=== PATIENT | male | born 1940 | race Caucasian/White ===

== ENCOUNTER 2018-06-17 06:48 | Day surgery (SDC) | payer MEDICARE, SELFPAY ==
--- NOTE | 2018-06-15 10:19 | ROE_ITS ---
Operative Note Pre-op diagnosis: Cataract, right eye, with poorly dilating pupil Post-op diagnosis: same Procedure: 1. Cataract extraction by phacoemulisification with intraocular lens implantation, right eye, with pupillary expansion device assistance Surgeon: Rey Emerson Anesthesia: MAC and local (sub-tenon's anesthetic infiltration) Estimated blood loss (mL): 0 Pathology: none sent Complications: None Patient was transported to: same day Patient's condition: stable Implants: Jin and Jin / [employer] Tecnis [id number] Indications: Painless, progressive decreased vision, right eye Procedure Description: CATARACT SURGERY OPERATIVE REPORT PREOPERATIVE DIAGNOSIS: 1. [] 2. Poorly dilating pupil, right eye POSTOPERATIVE DIAGNOSIS: Same OPERATION: Cataract extraction using phacoemulsification with posterior chamber intraocular lens implant, right eye. Pupillary dilation and iris stabilization using Malyugin Ring IOL: IOL Piston Maker/Model: Jin & Jin / BARBARA Tecnis [id number] IOL Power: [] diopters IOL Serial Number: [] Optic Diameter: [] mm Haptic/Overall Diameter: [] mm PHACO INFO: [email or web address] Vision System with OZil and Active Fluidics Cumulative Dispersed Energy (CDE): [] seconds SURGEON: Rey Emerson MD, TAMMI ANESTHESIA: Monitored Anesthesia Care (MAC), with local sub-tenon's anesthetic infiltration COMPLICATIONS: None SPECIMENS: None INDICATIONS FOR PROCEDURE: [] PROCEDURE: The correct surgical eye was identified and marked as the right eye and the pupil was dilated in the preoperative area using mydriatics, cycloplegics, and NSAIDS (except in aspirin allergic patients). The dilated pupil size was [] mm. Oral sedation was administered in the form of an Imprimis MKO Melt (midazolam 3mg/ketamine 25mg/ondansetron 2mg). The patient was brought to the operating room where cardiopulmonary monitoring was instituted and surgical time-out was performed, confirming the correct operative eye and IOL power. Topical anesthesia was administered and ophthalmic povidone-iodine 5% was instilled into the conjunctival fornices. Lidocaine gel was applied to the cornea and the echo-ocular area was prepped with Betadine 10% solution and draped in the usual sterile fashion for intraocular surgery. Steri-strips were used to cover the lashes and lid margins and an adhesive eye drape was placed. Care was taken to isolate the lashes and lid margins under the Steri-strips and adhesive eye drape. A lid speculum was placed between the lids of the operative eye and the Alec-Cyrus operating microscope was maneuvered into position. Lisa scissors were then used to make a conjunctival buttonhole approximately 6mm posterior to the limbus in the inferonasal quadrant. Blunt dissection was carried out to expose bare sclera, and a blunt-tipped sub-tenon? s anesthesia cannula was introduced and passed posteriorly along the globe where non-preserved plain lidocaine was injected into posterior sub-Tenon?s space. A sideport knife was used to make a paracentesis port at the 7:00 postion and the anterior chamber was filled with Healon GV. A 2.4mm keratome knife was used to create a half-thickness groove at the limbus and then to construct a three-plane near-clear corneal tunnel extending 2.0mm into clear cornea at the 10:00 position. A []mm Malyugin Ring was then inserted into the pupillary space and engaged with the Kuglen hook. A flap was raised on the anterior capsule and capsulorhexis forceps were used to complete a continuous curvilinear capsulorhexis of []. Balanced salt solution was then used to perform cortical cleaving hydrodissection and nuclear hydrodelineation until the lens could be freely rotated within the capsular bag. The lens nucleus was then disassembled and removed within the capsular bag and iris plane using phacoemulsification. Residual cortical material was removed using the 45-degree angled silicone I/A tip with 0.3mm port. The posterior capsule was carefully polished to remove as much residual lens epithelial cells as safely possible. The capsular bag was then inflated and the anterior chamber deepened with viscoelastic. The lens implant described above was inserted into the capsular bag using the BARBARA [place] Injector. A Kuglen hook was used to dial the IOL into position. The Malyugin Ring was removed in the reverse order of its insertion. Residual viscoelastic was then removed first from posterior to the IOL, then from the anterior chamber using the I/A handpiece. The lens implant was noted to center nicely within the capsular bag. The incisions were stromally hydrated , and the anterior chamber was reformed using BSS. Then 0.4cc of moxifloxacin 1.5mg/ml were injected into the capsular bag and anterior chamber. The incisions were checked with a Weck spear and found to be secure. Several drops of ophthalmic povidone-iodine 5% were then applied to the eye followed by two drops of Imprimis combination moxifloxacin/dexamethasone solution. The drapes were removed and a clear plastic eye shield was placed on the eye. The patient was then returned to Same Day Surgery in stable condition.
--- NOTE | 2018-06-15 10:25 | W.PM.OP ---
Operative Note Pre-op diagnosis: Cataract, left eye Post-op diagnosis: same Procedure: Cataract extraction using phacoemulsification with intraocular lens implant, left eye Surgeon: Rey Emerson Anesthesia: MAC and local (sub-tenon's anesthetic infiltration) Pathology: none sent Complications: None Patient was transported to: same day Patient's condition: stable Implants: Jin and Jin / [employer] Tecnis [id number] Indications: Painless progressive vision loss due to cataract, left eye Procedure Description: CATARACT SURGERY OPERATIVE REPORT PREOPERATIVE DIAGNOSIS: [] POSTOPERATIVE DIAGNOSIS: Same OPERATION: Cataract extraction using phacoemulsification with posterior chamber intraocular lens implant, left eye. IOL: IOL Disability Rater/Model: Jin & Jin / BARBARA Tecnis [id number] IOL Power: [] diopters IOL Serial Number: [] Optic Diameter: [] mm Haptic/Overall Diameter: [] mm PHACO INFO: [employer] Vision System with OZil and Active Fluidics Cumulative Dispersed Energy (CDE): [] seconds SURGEON: Rey Emerson MD, TAMMI ANESTHESIA: Monitored Anesthesia Care (MAC), with local sub-tenon's anesthetic infiltration COMPLICATIONS: None SPECIMENS: None INDICATIONS FOR PROCEDURE: [] PROCEDURE: The correct surgical eye was identified and marked as the left eye and the pupil was dilated in the preoperative area using mydriatics, cycloplegics, and NSAIDS (except in aspirin allergic patients). The dilated pupil size was [] mm. Oral sedation was administered in the form of an Imprimis MKO Melt (midazolam 3mg/ketamine 25mg/ondansetron 2mg). The patient was brought to the operating room where cardiopulmonary monitoring was instituted and surgical time-out was performed, confirming the correct operative eye and IOL power. Topical anesthesia was administered and ophthalmic povidone-iodine 5% was instilled into the conjunctival fornices. Lidocaine gel was applied to the cornea and the echo-ocular area was prepped with Betadine 10% solution and draped in the usual sterile fashion for intraocular surgery. Steri-strips were used to cover the lashes and lid margins and an adhesive eye drape was placed. Care was taken to isolate the lashes and lid margins under the Steri-strips and adhesive eye drape. A lid speculum was placed between the lids of the operative eye and the Alec-Cyrus operating microscope was maneuvered into position. Lisa scissors were then used to make a conjunctival buttonhole approximately 6mm posterior to the limbus in the inferonasal quadrant. Blunt dissection was carried out to expose bare sclera, and a blunt-tipped sub-tenon?s anesthesia cannula was introduced and passed posteriorly along the globe where non-preserved plain lidocaine was injected into posterior sub-Tenon?s space. A sideport knife was used to make a paracentesis port at the 12:00 postion and the anterior chamber was filled with Healon GV. A 2.4mm keratome knife was used to create a half-thickness groove at the limbus and then to construct a three-plane near-clear corneal tunnel extending 2.0mm into clear cornea at the 3:00 position. A flap was raised on the anterior capsule and capsulorhexis forceps were used to complete a continuous curvilinear capsulorhexis of []. Balanced salt solution was then used to perform cortical cleaving hydrodissection and nuclear hydrodelineation until the lens could be freely rotated within the capsular bag. The lens nucleus was then disassembled and removed within the capsular bag and iris plane using phacoemulsification. Residual cortical material was removed using the 45-degree angled silicone I/A tip with 0.3mm port. The posterior capsule was carefully polished to remove as much residual lens epithelial cells as safely possible. The capsular bag was then inflated and the anterior chamber deepened with viscoelastic. The lens implant described above was inserted into the capsular bag using the BARBARA [place] Injector. A Kuglen hook was used to dial the IOL into position. Residual viscoelastic was then removed first from posterior to the IOL, then from the anterior chamber using the I/A handpiece. The lens implant was noted to center nicely within the capsular bag. The incisions were stromally hydrated, and the anterior chamber was reformed using BSS. Then 0.4cc of moxifloxacin 1.5mg/ml were injected into the capsular bag and anterior chamber. The incisions were checked with a Weck spear and found to be secure. Several drops of ophthalmic povidone-iodine 5% were then applied to the eye followed by two drops of Imprimis combination moxifloxacin/dexamethasone solution. The drapes were removed and a clear plastic protective eye shield was placed over the eye. The patient was then returned to Same Day Surgery in stable condition.
--- NOTE | 2018-06-16 08:54 | W.PIPPEYE ---
History of Present Illness Chief Complaint: Progressive decreased vision, right eye Narrative: Patient is a 78-year-old gentleman with history of progressive decreased vision in both eyes both distance and near. He notes significant difficulty with glare from headlights and bright sunlight. On examination he was noted to have significant bilateral nuclear cataracts. He underwent cataract surgery in the left eye on 06/03/2018 and postoperatively has regained visual acuity of 20/15 uncorrected in the left eye. He now presents for cataract surgery in the right eye NOTE: The Chief Complaint, HPI, Past Medical History, Past Surgical History, Family History, Social History, Medications, and complete Ophthalmic Exam with detailed Assessment and Plan have already been documented in the patient's outpatient ophthalmic record and/or in the Primary Care Provider's pre-op history and physical, and are not covered again in detail here. [facility] Social History Smoking/Tobacco Use Status: Never Surgical History Colonoscopy - MAC Mohs micrographic surgery Meds Home Medications Medication Instructions Recorded Confirmed Type potassium gluconate 99 mg PO DAILY 05/03/15 06/03/18 History lisinopril 20 mg PO DAILY #90 tab-cap 06/13/17 06/03/18 Clinic hydrochlorothiazide 25 mg PO DAILY #90 tab-cap 01/07/18 06/03/18 Clinic Allergies Allergy/AdvReac Type Severity Reaction Status Date / Time penicillin G Allergy Intermediate Hives Unverified 05/29/18 10:43 Exam OCULAR EXAM:: Visual acuity at distance: 20/20 right eye, 20/15 left eye Pupils: Normally reactive without RAPD IOP: 18 OD 12 OS Extraocular Motility: Normal Pertinent Slit Lamp Findings: Significant for pupils dilating tubes 0.5 mm OU. 2+ nuclear cataract OD. Well-positioned PCIOL OS with clear posterior capsule Dilated Funduscopic Examination: Disc cupping is 0.3 OU with normal vessels, macula, peripheral retina and vitreous. BRIGHTNESS ACUITY TESTING (BAT):: Off right eye 20/20 Low: 20/25 Medium: 20/25 High: 2030 Assessment and Plan (1) Nuclear sclerotic cataract of right eye: Current visit: No Status: Chronic Assessment: Visually significant cataract, right eye. Plan: Cataract extraction with intraocular lens implantation, right eye Note: NOTE:: The details of the planned surgery, including the risks, indications,limitations,expectations,outcome and possible complications were explained to the patient. The patient understands the complications including, but not limited to: infection, hemorrhage, posterior dislocation of the lens or nuclear fragments which may require the intervention of a vitreoretinal surgeon, possible loss of the eye, or from anesthetic complications. The patient has been made aware of the option of not having surgery, that vision following surgery may not be equal to that prior to surgery, and that the planned surgery may not achieve the intended results. Following this discussion, which the patient appeared to understand, the patient wishes to proceed with cataract surgery with lens implantation of the affected eye to improve and maximize vision.
--- NOTE | 2018-06-16 09:05 | POEE_ITS ---
History of Present Illness Chief Complaint: Progressive decreased vision, right eye Narrative: Patient is a 78-year-old gentleman with history of progressive decreased vision in both eyes both distance and near. He notes significant difficulty with glare from headlights and bright sunlight. On examination he was noted to have significant bilateral nuclear cataracts. He underwent cataract surgery in the left eye on 06/03/2018 and postoperatively has regained visual acuity of 20/15 uncorrected in the left eye. He now presents for cataract surgery in the right eye NOTE: The Chief Complaint, HPI, Past Medical History, Past Surgical History, Family History, Social History, Medications, and complete Ophthalmic Exam with detailed Assessment and Plan have already been documented in the patient's outpatient ophthalmic record and/or in the Primary Care Provider's pre-op history and physical, and are not covered again in detail here. [facility] Social History Smoking/Tobacco Use Status: Never Surgical History Colonoscopy - MAC Mohs micrographic surgery Meds Home Medications Medication Instructions Recorded Confirmed Type potassium gluconate 99 mg PO DAILY 05/03/15 06/03/18 History lisinopril 20 mg PO DAILY #90 tab-cap 06/13/17 06/03/18 Clinic hydrochlorothiazide 25 mg PO DAILY #90 tab-cap 01/07/18 06/03/18 Clinic Allergies Allergy/AdvReac Type Severity Reaction Status Date / Time penicillin G Allergy Intermediate Hives Unverified 05/29/18 10:43 Exam OCULAR EXAM:: Visual acuity at distance: 20/20 right eye, 20/15 left eye Pupils: Normally reactive without RAPD IOP: 18 OD 12 OS Extraocular Motility: Normal Pertinent Slit Lamp Findings: Significant for pupils dilating tubes 0.5 mm OU. 2+ nuclear cataract OD. Well-positioned PCIOL OS with clear posterior capsule Dilated Funduscopic Examination: Disc cupping is 0.3 OU with normal vessels, macula, peripheral retina and vitreous. BRIGHTNESS ACUITY TESTING (BAT):: Off right eye 20/20 Low: 20/25 Medium: 20/25 High: 2030 Assessment and Plan (1) Nuclear sclerotic cataract of right eye: Current visit: No Status: Chronic Assessment: Visually significant cataract, right eye. Plan: Cataract extraction with intraocular lens implantation, right eye Note: NOTE:: The details of the planned surgery, including the risks, indications, limitations,expectations,outcome and possible complications were explained to the patient. The patient understands the complications including, but not limited to: infection, hemorrhage, posterior dislocation of the lens or nuclear fragments which may require the intervention of a vitreoretinal surgeon, possible loss of the eye, or from anesthetic complications. The patient has been made aware of the option of not having surgery, that vision following surgery may not be equal to that prior to surgery, and that the planned surgery may not achieve the intended results. Following this discussion, which the patient appeared to understand, the patient wishes to proceed with cataract surgery with lens implantation of the affected eye to improve and maximize vision.
[2018-06-17 07:13] VITALS: BP 150/93; PULSE 55; RESP 16; TEMP 36.5; O2SAT 97
[2018-06-17] MEDS: Lidocaine 2% Jelly 6 ML SYR (08:14)
[2018-06-17] MEDS: Balanced Salt Soln.-PLUS 500 ML BAG (08:21)
[2018-06-17] MEDS: Lidocaine 1% Pres-Free 5 ML VIAL (08:21)
[2018-06-17] MEDS: Povidone-Iodine Ophth 30 ML BTL (08:44)
--- NOTE | 2018-06-17 08:52 | W.PM.DSUDISC ---
Discharge Plan Discharge Details Attending Provider: Rey Emerson Primary Care Provider: Princess Harmon Home Meds and New Rx's Prescriptions: No Action potassium gluconate 99 MG tablet 99 mg PO DAILY RF: 0 lisinopril 20 MG tablet 20 mg PO DAILY Qty: 90 RF: 4 hydrochlorothiazide 25 MG tablet 25 mg PO DAILY Qty: 90 RF: 4 Discharge Instructions Stand Alone Forms: Post-op Topical Cataract, Tre Chris (DSU) DS: Diagnosis Discharge Diagnosis (1) Nuclear sclerotic cataract of right eye: Status: Resolved
--- NOTE | 2018-06-17 08:52 | W.PM.OP ---
Date of service: 06/17/18 Time of Service: 08:30 Operative Note Pre-op diagnosis: Cataract, right eye Post-op diagnosis: same Procedure: Cataract extraction using phacoemulsification with intraocular lens implant, right eye Surgeon: Rey Emerson Anesthesia: MAC (with local sub-tenon's anesthetic injection) Pathology: none sent Complications: None Patient was transported to: same day Patient's condition: stable Indications: Progressive vision loss due to cataract, right eye Procedure Description: CATARACT SURGERY OPERATIVE REPORT PREOPERATIVE DIAGNOSIS: Nuclear/cortical cataract, right eye POSTOPERATIVE DIAGNOSIS: Same OPERATION: Cataract extraction using phacoemulsification with posterior chamber intraocular lens implant, right eye. IOL: IOL Compliance Advisor/Model: Jin & Jin / BARBARA Tecnis ZCB00 IOL Power: +21.0 diopters IOL Serial Number: [id number] Optic Diameter: 6.0 mm Haptic/Overall Diameter: 13.0 mm PHACO INFO: [employer] Vision System with OZil and Active Fluidics Cumulative Dispersed Energy (CDE): 10.99 seconds SURGEON: Rey Emerson MD, TAMMI ANESTHESIA: Monitored Anesthesia Care (MAC), with local sub-tenon's anesthetic infiltration COMPLICATIONS: None SPECIMENS: None INDICATIONS FOR PROCEDURE: The patient is a 78-year-old gentleman with history of symptomatic bilateral nuclear and cortical cataracts. He was sick significantly symptomatic that he desires cataract surgery and underwent cataract surgery in the left eye on 06/03/2018. Postoperatively he has excellent uncorrected visual acuity in the left eye and now presents for cataract surgery in the right eye. PROCEDURE: The correct surgical eye was identified and marked as the right eye and the pupil was dilated in the preoperative area using mydriatics, cycloplegics, and NSAIDS (except in aspirin allergic patients). The dilated pupil size was 7.0 mm. Oral sedation was administered in the form of an Imprimis MKO Melt (midazolam 3mg/ketamine 25mg/ondansetron 2mg). The patient was brought to the operating room where cardiopulmonary monitoring was instituted and surgical time-out was performed, confirming the correct operative eye and IOL power. Topical anesthesia was administered and ophthalmic povidone-iodine 5% was instilled into the conjunctival fornices. Lidocaine gel was applied to the cornea and the echo-ocular area was prepped with Betadine 10% solution and draped in the usual sterile fashion for intraocular surgery. Steri-strips were used to cover the lashes and lid margins and an adhesive eye drape was placed. Care was taken to isolate the lashes and lid margins under the Steri-strips and adhesive eye drape. A lid speculum was placed between the lids of the operative eye and the Alec-Cyrus operating microscope was maneuvered into position. Lsia scissors were then used to make a conjunctival buttonhole approximately 6mm posterior to the limbus in the inferonasal quadrant. Blunt dissection was carried out to expose bare sclera, and a blunt-tipped sub-tenon?s anesthesia cannula was introduced and passed posteriorly along the globe where non-preserved plain lidocaine was injected into posterior sub-Tenon?s space. A sideport knife was used to make a paracentesis port at the 7:00 postion and the anterior chamber was filled with Healon GV. A 2.4mm keratome knife was used to create a half-thickness groove at the limbus and then to construct a three-plane near-clear corneal tunnel extending 2.0mm into clear cornea at the 10:00 position. A flap was raised on the anterior capsule and capsulorhexis forceps were used to complete a continuous curvilinear capsulorhexis of 5.0 mm, slightly irregular superiorly. Balanced salt solution was then used to perform cortical cleaving hydrodissection and nuclear hydrodelineation until the lens could be freely rotated within the capsular bag. The lens nucleus was then disassembled and removed within the capsular bag and iris plane using phacoemulsification. Residual cortical material was removed using the 45-degree angled silicone I/A tip with 0.3mm port. The posterior capsule was carefully polished to remove as much residual lens epithelial cells as safely possible. The capsular bag was then inflated and the anterior chamber deepened with viscoelastic. The lens implant described above was inserted into the capsular bag using the BARBARA [place] Injector. A Kuglen hook was used to dial the IOL into position. Residual viscoelastic was then removed first from posterior to the IOL, then from the anterior chamber using the I/A handpiece. The lens implant was noted to center nicely within the capsular bag. The incisions were stromally hydrated, and the anterior chamber was reformed using BSS. Then 0.4cc of moxifloxacin 1.5mg/ml were injected into the capsular bag and anterior chamber. The incisions were checked with a Weck spear and found to be secure. Several drops of ophthalmic povidone-iodine 5% were then applied to the eye followed by two drops of Imprimis combination moxifloxacin/dexamethasone solution. The drapes were removed and a clear plastic protective eye shield was placed over the eye. The patient was then returned to Same Day Surgery in stable condition.
[2018-06-17 09:11] VITALS: BP 121/82; PULSE 57; RESP 16; TEMP 35.7; O2SAT 97
== END 2018-06-17 09:22 | disposition home or self-care (01) ==
LOC: SUR 06:49
PROVIDERS: PCP Family Medicine; Visit Provider Ophthalmology
PROC: (CPT 66984; principal; 2018-06-17 08:30)
DX: H25.11 Age-related nuclear cataract, right eye (principal); H25.011 Cortical age-related cataract, right eye; I10 Essential (primary) hypertension
CPT/HCPCS: 66984; V2632

== ENCOUNTER 2018-08-13 11:23 | Outpatient (CLI) | payer MEDICARE, SELFPAY ==
[2018-08-13 13:30] LABS: ALT 39 U/L (12-78); AST 24 U/L (15-37); Albumin 4.1 g/dL (3.4-5.0); Alkaline Phosphatase 86 U/L (46-116); Anion Gap 8.3 mmol/L (3-11); BUN 25 mg/dL (7-18); Bilirubin, Total 0.5 mg/dL (0.2-1.0); CO2 29.7 mmol/L (21.0-32.0); CREATININE 0.81 mg/dL (0.70-1.30); Calcium 9.3 mg/dL (8.5-10.1); Chloride 99 mmol/L (98-107); Glucose 85 mg/dL (70-100); Potassium 4.6 mmol/L (3.5-5.1); Sodium 137 mmol/L (136-145); Total Protein 7.2 g/dL (6.4-8.2)
== END 2018-08-13 11:43 ==
PROVIDERS: PCP Family Medicine; Visit Provider Family Medicine
DX: I10 Essential (primary) hypertension (principal)
CPT/HCPCS: 36415; 80053

== ENCOUNTER 2019-01-13 09:35 | Outpatient (CLI) | payer MEDICARE, SELFPAY ==
[2019-01-13 12:56] LABS: Anion Gap 9.2 mmol/L (3-11); BUN 23 mg/dL (7-18); CO2 29.8 mmol/L (21.0-32.0); CREATININE 0.84 mg/dL (0.70-1.30); Calcium 9.2 mg/dL (8.5-10.1); Chloride 102 mmol/L (98-107); Glucose 85 mg/dL (70-100); Potassium 4.7 mmol/L (3.5-5.1); Sodium 141 mmol/L (136-145)
== END 2019-01-13 09:55 ==
PROVIDERS: PCP Family Medicine; Visit Provider Family Medicine
DX: I10 Essential (primary) hypertension (principal)
CPT/HCPCS: 36415; 80048

== ENCOUNTER → 2019-10-30 08:43 | Outpatient (BNVA) | payer MEDICARE, SELFPAY | PROVIDERS: PCP Family Medicine; Referring Provider Family Medicine; Visit Provider Nurse Practitioner Adult Health | DX: R51 Headache (principal) | CPT/HCPCS: 99204 ==

== ENCOUNTER 2019-10-31 00:19 | Outpatient (CLI) | payer MEDICARE, SELFPAY ==
[2019-10-31 11:33] LABS: CREATININE 0.72 mg/dL (0.70-1.30)
== END 2019-10-31 00:39 ==
PROVIDERS: PCP Family Medicine; Visit Provider Nurse Practitioner Adult Health
DX: N40.0 Benign prostatic hyperplasia without lower urinary tract symptoms (principal); Z87.448 Personal history of other diseases of urinary system
CPT/HCPCS: 36415; 82565

== ENCOUNTER 2019-11-05 01:24 | Outpatient (CLI) | payer MEDICARE, SELFPAY ==
--- NOTE | 2019-11-05 08:09 | DI.MRI_ITS ---
EXAM: MR BRAIN WO/W MRI angio brain CLINICAL HISTORY: new onset headache, history of melanoma of neck. TECHNIQUE: Multiplanar multisequence MRI was performed. Post gadolinium axial, coronal and sagittal T1 weighted sequences were performed in addition to the routine views.. COMPARISON: MR ANGIO BRAIN WO from 11/05/2019 FINDINGS: MRI of the brain and MR angiography of the brain: No acute hemorrhage, mass or infarct is seen. T here are no abnormal enhancing lesions. There is mild atrophy mild compensatory ventricular dilatati on. There are minimal white matter changes of small vessel disease. The vascular flow voids appear intact. The basilar artery is ectatic. There is no evidence aneurysm, vascular occlusion or signifi cant stenosis. The venous structures appear intact. The sinuses and mastoid air cells appear clear. MRA of the neck: The exam is mildly limited by patient motion. There is no visible narrowing of the c ommon carotid arteries or external carotid arteries. The vertebral arteries are normal in diameter. T here is tortuosity at the left proximal internal carotid artery. There is flow artifact in this area. There is no evidence of a significant stenosis. IMPRESSION: Age related changes. No evidence of metastatic disease or aneurysm. No evidence carotid or vertebral artery stenosis, occlusion or dissection.
[2019-11-05] MEDS: Normal Saline Flush 10 ML SYR IVP (08:50)
[2019-11-05] MEDS: Gadoterate meglumine 20 ML VIAL 10 ML IVP (08:51)
== END 2019-11-05 01:44 ==
PROVIDERS: PCP Family Medicine; Visit Provider Nurse Practitioner Adult Health
DX: R51 Headache (principal); Z85.820 Personal history of malignant melanoma of skin; R90.82 White matter disease, unspecified; G31.89 Other specified degenerative diseases of nervous system
CPT/HCPCS: 70544; 70547; 70553

== ENCOUNTER 2021-01-19 09:15 | Outpatient (CLI) | payer MEDICARE, SELFPAY ==
--- NOTE | 2021-01-19 11:30 | DI.RAD_ITS ---
EXAM: XR RIBS LT PA CHEST 3V CLINICAL HISTORY: fall from 10 ft 1 week ago on L side/L rib pain, R07.81 TECHNIQUE: 2D digital imaging was performed. COMPARISON: CR ABD FLAT UPRIGHT PA CHEST from 06/17/2015 FINDINGS: There are few left-sided rib fractures noted which appear healing; not obviously acute. There is atelectasis or scarring in both lungs. No pneumothorax. Slight blunting left costophrenic angle is noted either pleural thickening or pleural effusion. No prominent lung contusion. Hiatal h ernia is noted. Heart size is normal and there is no significant mediastinal widening. IMPRESSION: 1. Left-sided rib fractures which do not appear acute. This involves the tense 9th and 8th ribs. 2. Some atelectasis or scarring in the adjacent left lung base is noted as is blunting of the ipsilat eral-left costophrenic angle indicating pleural effusion or pleural thickening. This finding was not evident on x-rays performed 2014. DATA REPOSITORY: RADIATION DOSE DELIVERED:
== END 2021-01-19 09:35 ==
PROVIDERS: PCP Family Medicine; Visit Provider Family Medicine
DX: R07.81 Pleurodynia (principal); S22.42XD Multiple fractures of ribs, left side, subsequent encounter for fracture with routine healing; J98.4 Other disorders of lung
CPT/HCPCS: 71101

== ENCOUNTER 2021-04-28 03:22 | Outpatient (CLI) | payer MEDICARE, SELFPAY ==
[2021-04-28 13:06] LABS: ALT 29 U/L (16-63); AST 19 U/L (15-37); Albumin 4.1 g/dL (3.4-5.0); Alkaline Phosphatase 87 U/L (46-116); Anion Gap 8.7 mmol/L (3-11); BUN 20 mg/dL (7-18); Bilirubin, Total 0.5 mg/dL (0.2-1.0); CO2 29.3 mmol/L (21.0-32.0); CREATININE 0.7 mg/dL (0.70-1.30); Calcium 8.9 mg/dL (8.5-10.1); Chloride 104 mmol/L (98-107); Glucose 92 mg/dL (74-106); Potassium 4.7 mmol/L (3.5-5.1); Sodium 142 mmol/L (136-145); Total Protein 7.1 g/dL (6.4-8.2)
[2021-04-28 21:35] LABS: PSA, Screening 2.4 ng/mL (0.0-6.5)
== END 2021-04-28 03:23 | disposition home or self-care (01) ==
LOC: LOS 03:22
PROVIDERS: PCP Family Medicine; Visit Provider Family Medicine
DX: I10 Essential (primary) hypertension (principal); N40.0 Benign prostatic hyperplasia without lower urinary tract symptoms; Z12.5 Encounter for screening for malignant neoplasm of prostate
CPT/HCPCS: 36415; 80053; 84153

== ENCOUNTER 2021-11-02 08:29 | Outpatient (CLI) | payer MEDICARE, SELFPAY | END 2021-11-02 08:30 | disposition home or self-care (01) | LOC: DI.CM 08:31 | PROVIDERS: PCP Family Medicine; Visit Provider Family Medicine | DX: R69 Illness, unspecified (principal) ==

== ENCOUNTER 2021-11-20 21:27 | Emergency (ER) | payer MEDICARE, SELFPAY ==
--- NOTE | 2021-11-20 21:30 | DI.RAD_ITS ---
Exam(s) XR ANKLE LT COMPLETE EXAM: XR ANKLE LT COMPLETE CLINICAL HISTORY: Fall, Deformity. TECHNIQUE: 2D digital imaging was performed. COMPARISON: No exams were available for comparison FINDINGS: There is an oblique mildly displaced fracture of the distal fibula just above the malleolus. There i s also a displaced fracture of the medial malleolus. There is widening of the mortise. IMPRESSION: Fractures as described above. DATA REPOSITORY: RADIATION DOSE DELIVERED:
[2021-11-20 21:36] VITALS: BP 160/89; PULSE 68; RESP 20; TEMP 36.5; O2SAT 96
--- NOTE | 2021-11-20 21:43 | ED.GENADUL_ITS ---
Discharge Plan Disposition Patient Disposition: HOME Condition: Stable Discharge Details Clinical Impression: Closed trimalleolar fracture of left ankle Primary Care Provider: Usama Busby ED Provider: Kelley Pope Home Meds and New Rx's Prescriptions: Continued calcium carbonate [Calcium 500] 500 mg calcium (1,250 mg) tablet 500 mg PO DAILY 0RF hydrochlorothiazide 12.5 mg tablet 12.5 mg PO DAILY Qty: 90 3RF Rx Instructions: take one tablet daily tamsulosin 0.4 mg capsule 0.8 mg PO DAILY Qty: 180 3RF potassium gluconate 99 MG tablet 99 mg PO DAILY 0RF No Action aspirin 325 mg tablet 325 mg PO DAILY 0RF Discharge Instructions Instructions: Ankle Fracture (ED), Splint Care (ED) Additional Instructions: Please follow-up with the orthopedic clinic within the week. You may call them on Sunday or call them if you do not hear from them by Sunday. Do not place any weight on your left leg. Rest, ice, compression, elevation. While sitting or lying down keep your leg elevated on a couple of pillows. Please take Tylenol or Ibuprofen with food every 4-6 hours as needed for pain and swelling. Referrals: Jeronimo Seals MD [ [facility] STAFF PHYSICIAN] - 5 days (Call for an appointment) Medical Decision Making 81-year-old male presents to the ER with chief complaint of left ankle injury which occurred approximately an hour and a half prior to arrival. Patient reports he was out walking his dog when he slipped and fell with his foot twisting and going behind him. He does have swelling noted to the medial aspect of his ankle upon arrival. Dorsal pedal pulses intact distal 6 circulation sensation and movement intact. He did not take any medication prior to arrival and he declines pain medication at this time. He denies any head pain, neck pain or any other injuries. He does report that he crawled back home after the fall. 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 X-ray ordered, offered at this time patient declined. X-rays show a trimalleolar ankle fracture with disruption of the ankle mortise as noted in the read below. Imaging protocol: XR Left ankle. Views: 3 or more views. COMPARISON: No relevant prior studies available. FINDINGS: Bones/joints: Acute oblique fracture of the distal fibular diaphysis with a moderate distal lateral and posterior angulation. Acute fracture of the medial malleolus of the tibia with 12 mm medial displacement. Suspected avulsion fracture of the posterior malleolus, attention on post reduction films. Widening of the medial tibiotalar joint without dislocation of the ankle. Soft tissues: Generalized soft tissue swelling. IMPRESSION: Trimalleolar ankle fracture with disruption of the ankle mortise as above. I was in contact with Dr. Rico who is on-call for orthopedic surgery he was able to personally view the images. He does recommend a posterior short leg splint and a stirrup splint he also recommends follow-up within the week at [facility] or [facility]. Discussed x-ray results and home care with patient. He would prefer to follow- up with [facility]. A posterior and stirrup splint with plaster was applied as noted in procedure note above. Patient tolerated well distal CMS intact post splint application. Patient was given 650 mg of Tylenol. Instructed on RICE procedures and elevation and nonweightbearing status. Crutches ordered however patient does have crutches at home. Patient discharged in the care of his via wheelchair. Discussed strict return instructions and red flag This text was generated using [employer] dictation system, please disregard any oddities of phrase or misspellings. HPI General Mode of arrival: wheelchair . Date/Time Provider Initiated Documentation: 11/20/21 21:37 . Limitations to Documentation: no limitations . Information obtained by: patient, RN notes reviewed and old records reviewed . HPI Narrative: 81-year-old male presents to the ER with chief complaint of left ankle injury which occurred approximately an hour and a half prior to arrival. Patient reports he was out walking his dog when he slipped and fell with his foot twisting and going behind him. He does have swelling noted to the medial aspect of his ankle upon arrival. Dorsal pedal pulses intact distal 6 circulation sensation and movement intact. He did not take any medication prior to arrival and he declines pain medication at this time. He denies any head pain, neck pain or any other injuries. He does report that he crawled back home after the fall. 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 Related Data Home Medications Medication Instructions Recorded Confirmed potassium gluconate 595 mg (99 mg) 99 mg PO DAILY 05/03/15 11/02/21 tablet aspirin 325 mg tablet 325 mg PO DAILY 10/23/19 11/02/21 calcium carbonate 500 mg calcium 500 mg PO DAILY 10/30/19 11/02/21 (1,250 mg) tablet (Calcium 500) hydrochlorothiazide 12.5 mg tablet 12.5 mg PO DAILY #90 tab 11/02/21 11/02/21 tamsulosin 0.4 mg capsule 0.8 mg PO DAILY #180 cap 11/02/21 11/02/21 Previous Rx's Medication Instructions Recorded hydrochlorothiazide 12.5 mg tablet 12.5 mg PO DAILY #90 tab 11/02/21 tamsulosin 0.4 mg capsule 0.8 mg PO DAILY #180 cap 11/02/21 Allergies Allergy/AdvReac Type Severity Reaction Status Date / Time penicillin G Allergy Intermediate Hives Verified 11/02/21 08:23 General Stated Complaint: Orthopedic RONEL: 3 Review of Systems All systems reviewed & are unremarkable except as noted in HPI and below Musculoskeletal Musculoskeletal: Reports as per HPI, Reports arthralgias and Reports joint swelling PFS All Active Problems (Updated 11/20/21 @ 22:47 by Kelley Pope) Closed trimalleolar fracture of left ankle (Acute) BPH (benign prostatic hyperplasia) (Chronic) Essential hypertension (Acute) Basal cell carcinoma of parietal region of scalp (Acute 05/25/17) 05/16/17 [facility]-RIGHT SIDE;TUMOR REMOVED Malignant melanoma (Acute) surgery [facility]/ on back 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 Sister No problems noted. Sister No problems noted. Sister No problems noted. Brother , AGE 71 Heart disease Brother No problems noted. Brother , AGE 69 No problems noted. Son No problems noted. Daughter No problems noted. Daughter No problems noted. Social History Smoking/Tobacco Use Status: Never Second Hand Exposure: No Smoking risk assessment performed?: Yes Alcohol Intake: current Alcohol Intake frequency: a few times a month Alcohol type: beer Drug use: Never Substance use type: does not use Caregiver/Support person: No Foster care: No Household members: spouse Communication Needs: None Pets and animals: Yes Pets and animals: cat(s) and dog(s) Do you think of yourself as: straight/heterosexual Current gender identity: male What is your relationship status?: How often do you talk on the phone with friends or family?: once per week How often do you get together with friends or relatives?: once per week Do you belong to any clubs or organized social groups?: no Panel score (0-1 are the most socially isolated patients): 1 What type of physical activity do you participate in: walking Duration: 30-45 minutes/day Frequency: daily Special falguni needs: No Seatbelt use: always 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 Skin: Warm and Dry HEENT: Head: No palpable deformities, Normocephalic Eyes: Pupils PERRLA, EOM's intact. No periorbital eccymosis or step off Ears: Canal patent. Tympanic membranes are clear . No gee's sign, no hemptympanum. Nose/Face: Atraumatic. Facial bones nontender to palpation and stable with manipulation. Mouth/Throat: No intraoral trauma. Teeth and mandible are intact. Neck: No midline tenderness, no step off, no deformity to palpation of C-spine. Trachea midline. Chest: No surface trauma. Nontender without crepitus or deformity. Lungs clear to ausculatation bilaterally. Heart: RRR, no rubs, murmurs or gallop. Abdomen: No abrasions, ecchymosis, or surface trauma. Nondistended. Nontender to palpation no guarding, rebound, or rigidity. Pelvis: Nontender to palpation and stable to compression. Femoral pulses strong and equal Extremities: see extremity exam below. Sensation intact. Peripheral pulses intact and equal. Neuro: ANO x4, GCS 15, cranial nerves II through XII intact. Motor and sensory exam nonfocal. Reflexes are symmetric. Extrem Left lower extremity: knee (Bilateral superficial abrasions noted to anterior knees), ankle Details: tenderness Location: of the medial malleolus and swelling and foot (Dorsal pedal pulses intact cap refill less than 2 seconds sensation intact) Details: normal capillary refill and toes with normal ROM; Negative for no tenderness Course Vital Signs Vital signs: Vital Signs Temperature 36.5 C 11/20/21 21:36 Pulse 68 11/20/21 21:36 Respiratory Rate 20 11/20/21 21:36 Blood Pressure 160/89 H 11/20/21 21:36 Pulse Oximetry 96 11/20/21 21:36 Temperature 36.5 C 11/20/21 21:36 Temperature Source Temporal Artery Scan 11/20/21 21:36 Pulse 68 11/20/21 21:36 Respiratory Rate 20 11/20/21 21:36 Blood Pressure 160/89 H 11/20/21 21:36 Blood Pressure Position Supine 11/20/21 21:36 Pulse Oximetry 96 11/20/21 21:36 Oxygen Delivery Method Room Air 11/20/21 21:36 Oxygen Flow Rate 0 11/20/21 21:36 Pain Level 4 11/20/21 21:36 Procedures Orthopedic Splinting/Casting Injury #1: Side: left Lower Extremity Injury Location: ankle Lower Extremity Immobilizer: posterior splint, stirrup splint and Mitesh wrap Other Orthopedic Equipment: crutches Additional Comments: Posterior short leg plaster splint and stirrup splint applied. Patient tolerated well. Distal CMS intact post splint application. Discussed home care and splint care with patient who verbalizes understanding.
--- NOTE | 2021-11-20 22:25 | DI.VRAD_ITS ---
PROCEDURE INFORMATION: Exam: XR Left Ankle Exam date and time: 11/20/2021 21:38 Age: 81 years old Clinical indication: Other: Fall, deformity TECHNIQUE: Imaging protocol: XR Left ankle. Views: 3 or more views. COMPARISON: No relevant prior studies available. FINDINGS: Bones/joints: Acute oblique fracture of the distal fibular diaphysis with a moderate distal lateral and posterior angulation. Acute fracture of the medial malleolus of the tibia with 12 mm medial displacement. Suspected avulsion fracture of the posterior malleolus, attention on post reduction films. Widening of the medial tibiotalar joint without dislocation of the ankle. Soft tissues: Generalized soft tissue swelling. IMPRESSION: Trimalleolar ankle fracture with disruption of the ankle mortise as above. Dictated and Authenticated by: Jessica Mathews MD. Ordering:STACY Benson MD
[2021-11-20] MEDS: Acetaminophen 325 MG TAB (22:30)
[2021-11-20 23:09] VITALS: BP 151/91; PULSE 66; RESP 20; TEMP 36.5; O2SAT 97
== END 2021-11-20 23:10 | disposition home or self-care (01) ==
PROVIDERS: Emergency Provider Registered Nurse Emergency; PCP Family Medicine
DX: S82.852A Displaced trimalleolar fracture of left lower leg, initial encounter for closed fracture (principal); W00.0XXA Fall on same level due to ice and snow, initial encounter
CPT/HCPCS: 29515; 99283; 73610

== ENCOUNTER → 2021-11-24 08:15 | Outpatient (BNVA) | payer MEDICARE, SELFPAY | PROVIDERS: PCP Family Medicine; Referring Provider Family Medicine; Visit Provider Student in an Organized Health Care Education/Training Program | DX: S82.842A Displaced bimalleolar fracture of left lower leg, initial encounter for closed fracture (principal); W00.0XXA Fall on same level due to ice and snow, initial encounter; Y93.K1 Activity, walking an animal; I10 Essential (primary) hypertension | CPT/HCPCS: 99214 ==

== ENCOUNTER 2021-11-24 09:51 | Outpatient (REF) | payer MEDICARE, SELFPAY ==
[2021-11-24 12:20] LABS: COVID-19 PCR Negative (Negative)
[2021-11-24 12:21] LABS: Source Nasal/Nares
== END 2021-11-24 09:52 | disposition home or self-care (01) ==
LOC: LBN 09:51
PROVIDERS: PCP Family Medicine; Visit Provider Student in an Organized Health Care Education/Training Program
DX: Z20.822 Contact with and (suspected) exposure to COVID-19 (principal)
CPT/HCPCS: 87635

== ENCOUNTER 2021-11-25 10:24 | Day surgery (SDC) | payer MEDICARE, SELFPAY ==
[2021-11-25] VITALS (9 sets, daily range): BP systolic 109–147; BP diastolic 66–91; PULSE 49–69; RESP 10–16; TEMP 36.5–37; O2SAT 96–99; BMI 24.4
--- NOTE | 2021-11-25 10:19 | W.ANESPRE ---
General Info Date of Service Date Performed: 11/25/21 Height: 5 ft 11 in Weight: 79.379 kg Body Mass Index (BMI): 24.4 Surgical Procedure: Operation Date: 11/25/21 12:10 Proposed Procedure Side Surgeon p Ankle ORIF Bimalleolar Left Jeronimo Seals MD Meds Allergies and Home Medications Allergies Allergy/AdvReac Type Severity Reaction Status Date / Time penicillin G Allergy Mild Skin Rash Verified 11/25/21 10:42 Home Medication Medication Instructions Recorded potassium gluconate 595 mg (99 mg) 99 mg PO DAILY 05/03/15 tablet aspirin 325 mg tablet 325 mg PO DAILY 10/23/19 calcium carbonate 500 mg calcium 500 mg PO DAILY 10/30/19 (1,250 mg) tablet (Calcium 500) hydrochlorothiazide 12.5 mg tablet 12.5 mg PO DAILY #90 tab 11/02/21 tamsulosin 0.4 mg capsule 0.8 mg PO DAILY #180 cap 11/02/21 Current Visit Medications: Current Medications Generic Name Dose Route Start Last Admin Trade Name Ayadq PRN Reason Stop Dose Admin Ringer's Solution 1,000 mls @ 80 mls/hr 11/25/21 06:00 IV 12/24/21 23:59 INFUSION ISAK Cefazolin Sodium/Dextrose 2 gm in 50 mls @ 100 mls/hr 11/25/21 06:00 Ancef Duplex IVPB 11/25/21 16:00 PREOP ISAK IV Miscellaneous Supplies 1 each 11/25/21 06:00 Iv Access IV 12/24/21 23:59 DIRECTED ISAK Sodium Chloride 0 ml 11/25/21 06:00 Normal Saline Flush 10 Ml Syr IV 12/24/21 23:59 PRN PRN Sodium Chloride 0 ml 11/25/21 06:00 Normal Saline 10 Ml Vial IJ 12/24/21 23:59 DIRECTED PRN Sterile Water 0 ml 11/25/21 06:00 Water,Injection,Sterile 10 Ml Vial IJ 12/24/21 23:59 DIRECTED PRN PFSH Active Problems Active Problems: Problem Status Onset Code Closed bimalleolar fracture of left ankle 11/20/21 S82.842A Closed trimalleolar fracture of left ankle S82.852A BPH (benign prostatic hyperplasia) N40.0 Essential hypertension I10 Basal cell carcinoma of parietal region of scalp 05/25/17 C44.41 Malignant melanoma C43.9 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 C44.319 Anemia 06/17/15 D64.9 Medical History Medical History (Updated 11/25/21 @ 10:41 by Margaret Renee RN) Cataract excision of right cataract with iol implant Essential hypertension (12/17/13) Melanoma Surgical History Surgical History (Updated 11/25/21 @ 10:41 by Margaret Renee RN) Colonoscopy - MAC 10/14/14 H/O right inguinal hernia repair with mesh Mohs micrographic surgery 05/16/17 Nuclear sclerotic cataract of left eye s/p cataract surgery left eye, 06/03/18 Tobacco Smoking/Tobacco Use Status: Never Passive smoking exposure: No Second hand exposure: No Alcohol Alcohol Intake: current Alcohol intake frequency: a few times a month Alcohol type: beer Substance Use Substance use: Never Substance use type: does not use Vital Signs and Lab Results Lab Results Blood Type / Crossmatch: No Data to Display Complete Blood Count: No Data to Display Complete Metabolic Panel: No Data to Display Liver Function Panel: No Data to Display Coagulation Panel: No Data to Display Cardiac Panel: No Data to Display Arterial Blood Gas: No Data to Display Venous Blood Gas: No Data to Display Pancreas Panel: No Data to Display Thyroid Panel: No Data to Display Infectious Disease: Coronavirus (COVID-19)(PCR) Negative (Negative) 11/24/21 09:00 11/24/21 Coronavirus 2019 Source Nasal/Nares 11/24/21 09:00 11/24/21 Blood Cultures: No Data to Display Toxicology Panel: No Data to Display Anesthesia Assessment and Plan Anesthesia History Personal History: No History of Anesthesia Complications Family History: No Family History of Anesthesia Complications Exercise Tolerance Exercise Tolerance: Metabolic Equivalents<4 Pertinent Negatives Pertinent Negatives: No Symptoms of GERD, No Major Cardiovascular Symptoms or Complaints and No Major Pulmonary Symptoms or Complaints Cardiac & Pulmonary Exam Cardiac Exam: Normal S1/S2 Heart Sounds Pulmonary Exam: Clear Bilateral Breath Sounds Implantable Cardiac Device Does patient have a Pacemaker or an ICD?: No Airway Exam Known Difficult Airway: No Mallampati Class: 1 Mouth Opening: Normal (> 3cm) Thyromental Distance: Greater than 3 cm Facial Hair: Full Arboleda (mustache) Neck Range of Motion: Full ROM Neck Circumference: Normal Teeth Condition: Normal Dentition ASA Classification ASA Score: ASA 2 Emergency Case?: No NPO Status NPO Status: NPO Clears >2 hours, Solids >8 hours Anesthesia Plan Resuscitation Status: Full Code Anesthesia Technique: General Anesthesia Airway Planned: Natural Airway Monitors Used: Standard Monitors Preoperative Comments:: 81 yo male with left ankle fracture. Sig PMHx: HTN, occ EtOH, never smoker. Risks, benefits, and alternatives discussed spinal vs general +/- regional anesthesia.
[2021-11-25] MEDS: Celecoxib 200 MG CAP 400 MG PO (10:58)
[2021-11-25] MEDS: Acetaminophen 500 MG TAB 1000 MG PO (10:59)
[2021-11-25] MEDS: Lactated Ringers 1,000 ML 80 ML IV (11:17)
--- NOTE | 2021-11-25 11:30 | DI.RAD_ITS ---
Exam(s) XR ANKLE LT 2V EXAM: XR ANKLE LT 2V CLINICAL HISTORY: LEFT ANKLE FRACTURE TECHNIQUE: 2D and realtime digital imaging was performed. CONTRAST MATERIAL: Refer to procedure report. COMPARISON: CR,XR XR ANKLE LT COMPLETE from 11/20/2021 FINDINGS: Fluoroscopy was provided for Dr. Seals during the performance of a reduction and internal fixatio n of the left ankle fracture dislocation. Please refer to the procedure report for complete details. Ka,r=0.7895 mGy IMPRESSION: RADIATION DOSE DELIVERED:
[2021-11-25] MEDS: ceFAZolin 2 GM/50 ML BAG IVPB (12:07)
--- NOTE | 2021-11-25 12:13 | W.PM.DSUDISC ---
Discharge Plan Disposition Patient Disposition: HOME Condition: Good Discharge Details Reason For Visit: Left Bimalleolar Ankle Fracture Attending Provider: Jeronimo Seals Primary Care Provider: Usama Busby Home Meds and New Rx's Prescriptions: New acetaminophen 500 mg tablet 500 mg PO Q6H PRN PRN (Reason: pain) Qty: 40 3RF ibuprofen 600 mg tablet 600 mg PO TID PRN (Reason: pain) Qty: 60 3RF hydrocodone-acetaminophen 5-325 mg tablet 1 tab PO Q6H PRN (Reason: pain) Qty: 5 0RF Continued calcium carbonate [Calcium 500] 500 mg calcium (1,250 mg) tablet 500 mg PO DAILY 0RF hydrochlorothiazide 12.5 mg tablet 12.5 mg PO DAILY Qty: 90 3RF Rx Instructions: take one tablet daily tamsulosin 0.4 mg capsule 0.8 mg PO DAILY Qty: 180 3RF aspirin 325 mg tablet 325 mg PO DAILY 0RF potassium gluconate 99 MG tablet 99 mg PO DAILY 0RF Discharge Instructions Additional Instructions: Ankle ORIF Discharge Instructions Activity: You are TOUCHDOWN WEIGHT BEARING. You may rest the foot on the ground for balance but should try to avoid placing weight on the leg/splint. You should use the walker/cruthces for ambulatoin. You should keep the leg elevated as much as possible. You may wiggle your toes and move your hip and knee. Dressings: You should keep your splint clean and dry. Do NOT get wet or dirty. If you have issues with your splint, please call the office at [phone] or the hospital after hours. Medications: - You should take Tylenol and Ibuprofen around the clock for baseline pain. - You have been prescribed a stronger narcotic for breakthrough pain. - You should take your home Aspirin for blood clot prevention. Follow-up: 2 weeks Referrals: Jeronimo Seals MD [ [facility] STAFF PHYSICIAN] - Equipment/Supplies: Walker Activity:: Elevate Remove Dressings/Wound Care:: Do Not Remove Shower/Bathe:: Cover Diet:: As Tolerated Discharge Orders Discharge Orders: Discharge Order (Routine); Ordered 11/25/21 Ordered By: Jeronimo Seals DS: Diagnosis Discharge Diagnosis (1) Closed bimalleolar fracture of left ankle: Status: Acute
--- NOTE | 2021-11-25 13:11 | W.ANESNERVE ---
Nerve Block Single Injection Procedure Date and Time Date Performed: 11/25/21 Procedure Start: 11:35 Location Where Procedure Performed Procedure Location: Day Surgery Unit Reason Performed: Postoperative Analgesia Requesting Provider: Jeronimo Seals Timeout Performed Timeout Performed: Yes Monitoring Used ECG, Blood Pressure, SpO2 and See EMR for corresponding vital signs Sterility Sterility: Hand Hygiene, Surgical Cap, Surgical Mask, Sterile Gloves, Eye Protection and Chlorhexidine Sedation Given During Procedure Sedation Given (Indicate Dose Given): No Sedation given Patient Mental Status Patient Mental Status: Awake Nerve Block 1st Nerve Block: Laterality: Left Block Type: Popliteal Sciatic Needle / Catheter Used: 100mm SonoPlex II Local Anesthetic Bolus (Indicate Dose Given): Lidocaine used for local infiltration of skin, Injected in 3-5ml increments after negative blood aspiration, Bupivacaine 0.375% Dose:: 20mL and Exparel Dose:: 10 mL Additives (Indicate Dose Given): None Ultrasound: Sterile probe cover and gel used Ultrasound Image Saved?: Yes Nerve Stimulator: Not Used Paresthesia: None Procedure Tolerated: No Complications Procedure Outcome: Successful Performed By: Nancy Taylor 2nd Nerve Block: Laterality: Left Block Type: Adductor Canal Needle / Catheter Used: 100mm SonoPlex II Local Anesthetic Bolus (Indicate Dose Given): Lidocaine used for local infiltration of skin, Injected in 3-5ml increments after negative blood aspiration, Bupivacaine 0.25% Dose:: 10 mL and Exparel Dose:: 10 mL Additives (Indicate Dose Given): None Ultrasound: Sterile probe cover and gel used Ultrasound Image Saved?: Yes Nerve Stimulator: Not Used Paresthesia: None Procedure Tolerated: No Complications Procedure Outcome: Successful Performed By: Nancy Taylor
[2021-11-25] MEDS: Bupivacaine 0.5% Pres-Free 30 ML VIAL (13:48)
--- NOTE | 2021-11-25 14:08 | ROE_ITS ---
Date of service: 11/25/21 Time of Service: 14:10 Operative Note Operative Note DATE OF PROCEDURE: 11/25/21 PRE-OP DIAGNOSIS: Left Ankle Fracture Dislocation POST-OP DIAGNOSIS: same Fracture Blisters PROCEDURE: Open Reduction and Internal Fixation of Left Ankle - Medial and Lateral Malleoli and Syndesmosis SURGEON: Jeronimo Seals FRONT END DRIVER: Magui Dunn Refer to Anesthesia Record ESTIMATED BLOOD LOSS: 50 PATHOLOGY: none sent TOURNIQUET TIME: 0 COMPLICATIONS: None Patient was transported to: PACU Patient's condition: stable Implants: Synthes VA Distal Fibula Plate, Fibulink Syndesmotic Repair System Indications: Damon is a 81yo male who presented to the Emergency Department after a fall. X- rays confirmed the diagnosis of a [ankle fracture]. I reviewed the possible treatment options and given the fracture, I recommended operative fixation. I discussed the technical details of the surgery. I reviewed the risks such as bleeding, infection, pain, stiffness, malunion, nonunion, hardware prominence, hardware faiilure, malrotation, damage to nerves and vessels, blood clot. Despite these risks, [gender] agreed to proceed. Findings: There were multiple fracture blisters throughout the left leg both medially and laterally. I was able to place incisions between and around the fracture blisters and the remainder of the skin was under no tension or pressure. The ankle is grossly unstable. The ankle was reduced and stabilized with a lag screw and the distal fibula plate laterally as well as 2 screws medially and syndesmotic fixation with a Synthes Fibulink device. Procedure Description: Damon was greeted in the preoperative area. Consent was previously reviewed and signed. Once in the operating room, anesthesia was administered. Peripheral nerve blockade was performed of the adductor canal and the popliteal space. He was then taken back to the operating room and placed on the operating room table. He was positioned in the supine position with the operative side placed onto a bone foam ramp. All bony prominences were well padded. Arms were placed out to the side, padded, and secured. Prophylactic antibiotics, Cefazolin 2 grams, was given for prophylactic antibiotics. A timeout was performed for safe surgery. When the splint was taken down there was notable fracture blisters about the medial and lateral aspects of the leg. There were multiple, most hemorrhagic filled. A 18-gauge needle was used to create a hole in each blister and the blister fluid was drained prior to starting the case. The skin of the blister was left intact as a biological dressing. The left leg was prepped with Chloraprep. The leg was draped with a stockinette and extremity drape. The ankle is grossly unstable. A curvilinear incision was made medially to start. This was placed anterior to the fracture blisters and over the anterior margin of the medial malleolus for visualization of the shoulder of the medial malleolus and the tibiotalar joint. This is taken out sharply through the skin. Small crossing vascular structures were cauterized. Fracture was easily identifiable with a small horizontal tear of the medial deltoid ligament. This was opened up and there was gross instability of the distal fragment which provided excellent visualization into the tibiotalar joint. There is no loose debris. The wound was thoroughly irrigated including the joint. There is no loose bodies and no significant cartilage damage was appreciated. Attention was then turned to the lateral side of the ankle. A longitudinal incision was made over the fibula curving posteriorly as the incision went proximal to avoid a large anterolateral fracture blister. This is taken out of the skin sharply. Blunt dissection was used to identify any vascular branches in this area. The fibula was identified including the fracture and the deep tissue was incised on top of it to expose the fracture and the lateral aspect of the fibula. The fracture was exposed fully and early callus was removed. There was a short oblique fracture which was fully identified and with gentle manipulation was able to be reduced. I was able to hold it reduced with a lobster-claw clamp. Given the short oblique nature I was able to place a anterior to posterior lag screw. This was done using a 2.7 mm nonlocking screw and over drilling the near cortex with a 2.7 mm drill. This had excellent fixation of the fracture itself. I then was able to place a Synthes variable angle distal fibula plate. This was a 4-hole plate placed over the lateral aspect of the fibula. It was held in position and x-ray confirmed appropriately positioned plate. The fibula was palpated and noted that the plate was resting on the bone. I then placed a single nonlocking 3.5 millimeter screw proximal to the fracture site within the sliding hole. This is done to bring the plate down to bone over the lateral fibula. This was in appropriate position and then held the plate against the bone distally and placed a single 2.7 mm locking screw. Once again, fluoroscopy was utilized to confirm appropriate position of the plate. And then continue to place 2 additional 2.7 mm nonlocking screws proximally as well as 3 additional 2.7 mm locking screws distally. The first 3.5 millimeter screw was slightly short and therefore went to exchange it for a longer 3.5 millimeter screw. However, there is little purchase with the 3.5 millimeters screw so I increased to the 4.0 millimeter screw which had excellent fixation. The medial malleolus was then reduced. While was held reduced I placed 2 K wires from 3.5 mm cannulated screw system. These were advanced into the tibia in a slightly posterior to anterior direction. X-ray was utilized to confirm appropriate positioning of these K wires. The distal fragment was drilled with the cannulated drill. Two 3.5 mm cannulated screws, 50 mm in length, were placed in the medial malleolus. X-ray once again confirmed appropriate positioning of the fracture as well as screws. A brief stress test was performed of the ankle which showed syndesmotic widening. Therefore, continue with syndesmotic fixation. Using the Synthes tibial link syndesmotic excision system I drilled across the fibula and into the tibia with a tapered drill over a guidewire angle slightly posterior to anterior within the sliding hole distal to the fracture site approximately 50 mm above the joint line. This is major repair on the joint. The tibial device was then inserted into the tibia and it was secured. The at tachment device through the plate was then placed and engaged and tightened until it was appropriately tight with the ankle dorsiflexed position. Ankle was tested and showed to be stable to any extra rotation stress test. There is no gapping. The fibula was well reduced. The remainder of the fibula system was removed and final x-rays were obtained. The deep tissues were injected with 0.5% bupivacaine. The wounds were thoroughly irrigated. Deep fascia overlying the plate and the lateral fibula was closed with 0 Vicryl. The deep tissues were closed with 2-0 Vicryl and 3-0 Vicryl. Tissue quality actually is quite good in the deep layers and I was able to bring both skin edges back together with the deeper layer closure without tension on the skin. The skin was closed with interrupted 3-0 nylon sutures. The wounds and the neighboring skin was covered with Xeroform followed by 4 x 4's and ABD pads The leg was wrapped with web roll and a short posterior slab splint was applied. At the end of the case, all counts were correct. Damon tolerated the procedure well without known complication and was taken to the PACU for recovery. He shall continue to be touchdown weightbearing on the left lower extremity, using walker and crutches for amatory assistance. He will resume his aspirin.
--- NOTE | 2021-11-25 15:12 | W.ANESPOSTOP ---
Postoperative Evaluation Date, Time and Location Date Performed: 11/25/21 Time Performed: 15:12 Patient Location: Day Surgery Unit Vital Signs Most Recent Imported Vital Signs: Most Recent Vital Signs Temp Pulse Resp BP Pulse Ox 36.5 C 57 L 16 124/84 96 11/25/21 14:50 11/25/21 14:50 11/25/21 14:50 11/25/21 14:50 11/25/21 14:50 Pain Score Most Recent Pain Score: Most Recent Pain Score Pain Level 0 11/25/21 14:50 Assessment Mental Status: Awake (Alert & Oriented to Patient Baseline) Airway and Respiratory Function: Patent airway with normal (patient baseline) respiratory exam Cardiovascular Function: Hemodynamically Stable Hydration Status: Adequately Hydrated Nausea & Vomiting: No Nausea or Vomiting Pain: Pt. Denies Any Pain Peripheral Nerve Block: Regional nerve block not resolved at time of post operative discharge
== END 2021-11-25 16:00 | disposition home or self-care (01) ==
PROVIDERS: PCP Family Medicine; Visit Provider Student in an Organized Health Care Education/Training Program
PROC: (CPT 27814; principal; 2021-11-25 12:00)
DX: S82.842A Displaced bimalleolar fracture of left lower leg, initial encounter for closed fracture (principal); S93.432A Sprain of tibiofibular ligament of left ankle, initial encounter; X58.XXXA Exposure to other specified factors, initial encounter; I10 Essential (primary) hypertension; N40.0 Benign prostatic hyperplasia without lower urinary tract symptoms; D64.9 Anemia, unspecified
CPT/HCPCS: 27814; 27829; 76942; 73600; J0690; J1100; J1885; J2001; J2370; J2405; J2704

== ENCOUNTER 2021-12-07 10:41 | Outpatient (CLI) | payer MEDICARE, SELFPAY ==
--- NOTE | 2021-12-07 09:30 | DI.RAD_ITS ---
Exam(s) XR ANKLE LT COMPLETE EXAM: XR ANKLE LT COMPLETE CLINICAL HISTORY: 1ST POST OP L ANKLE ORIF TECHNIQUE: COMPARISON: CR,XR XR ANKLE LT COMPLETE from 11/20/2021 XA XR ANKLE LT 2V from 11/25/2021 FINDINGS: Three views were obtained. Fixation tibiofibular fracture again noted in place. Alignment appears u nchanged comparison with intraoperative films of November 25. IMPRESSION: RADIATION DOSE DELIVERED: Total DLP
== END 2021-12-07 10:42 | disposition home or self-care (01) ==
LOC: DIORS 10:41
PROVIDERS: PCP Family Medicine; Referring Provider Family Medicine; Visit Provider Physician Assistant
DX: S82.842D Displaced bimalleolar fracture of left lower leg, subsequent encounter for closed fracture with routine healing (principal); W00.0XXD Fall on same level due to ice and snow, subsequent encounter
CPT/HCPCS: 73610

== ENCOUNTER 2022-01-05 08:49 | Outpatient (CLI) | payer MEDICARE, SELFPAY ==
--- NOTE | 2022-01-05 08:30 | DI.RAD_ITS ---
Exam(s) XR ANKLE LT COMPLETE EXAM: XR ANKLE LT COMPLETE CLINICAL HISTORY: S/P ORIF LEFT ANKLE FX TECHNIQUE: 2D digital imaging was performed. Three views. COMPARISON: CR XR ANKLE LT COMPLETE from 12/07/2021 FINDINGS: There has been no change in fracture or hardware alignment. There is continued healing at the medial malleolar and distal fibular fractures. No new abnormalities. Some soft tissue swelling remains pr esent. DATA REPOSITORY: RADIATION DOSE DELIVERED:
== END 2022-01-05 08:50 | disposition home or self-care (01) ==
LOC: DIORS 08:50
PROVIDERS: PCP Family Medicine; Referring Provider Family Medicine; Visit Provider Student in an Organized Health Care Education/Training Program
DX: S82.842A Displaced bimalleolar fracture of left lower leg, initial encounter for closed fracture (principal); X58.XXXA Exposure to other specified factors, initial encounter
CPT/HCPCS: 73610

== ENCOUNTER 2022-02-23 10:15 | Outpatient (CLI) | payer MEDICARE, SELFPAY ==
--- NOTE | 2022-02-23 08:30 | DI.RAD_ITS ---
Exam(s) XR ANKLE LT COMPLETE EXAM: XR ANKLE LT COMPLETE CLINICAL HISTORY: F/U S/P ORIF L ANKLE. TECHNIQUE: 2D digital imaging was performed. Three images were obtained. AP, lateral and oblique vi ews were obtained. COMPARISON: CR XR ANKLE LT COMPLETE from 01/05/2022 FINDINGS: BONES: There are stable post operative changes present. The medial malleolar fracture is less well v isualized suggesting interval healing. A portion of the distal fibular fracture can still be seen. No new fracture or dislocation. JOINTS: The joint spaces are well maintained. No joint effusion is present. SOFT TISSUE: Soft tissue swelling of the ankle is noted particularly anteriorly and medially. IMPRESSION: Stable postoperative changes. DATA REPOSITORY: RADIATION DOSE DELIVERED:
== END 2022-02-23 10:16 | disposition home or self-care (01) ==
LOC: DIORS 10:16
PROVIDERS: PCP Family Medicine; Referring Provider Family Medicine; Visit Provider Student in an Organized Health Care Education/Training Program
DX: S82.842A Displaced bimalleolar fracture of left lower leg, initial encounter for closed fracture (principal); Z47.89 Encounter for other orthopedic aftercare; X58.XXXA Exposure to other specified factors, initial encounter
CPT/HCPCS: 73610

== ENCOUNTER 2022-07-31 02:50 | Outpatient (CLI) | payer MEDICARE, SELFPAY ==
[2022-07-31 12:43] LABS: Anion Gap 11.2 mmol/L (3-11); BUN 23 mg/dL (7-18); CO2 26.8 mmol/L (21.0-32.0); CREATININE 1.1 mg/dL (0.70-1.30); Calcium 8.7 mg/dL (8.5-10.1); Chloride 103 mmol/L (98-107); Estimated GFR 67.02 (mL/min/1.73m2); Glucose 133 mg/dL (74-106); Potassium 3.7 mmol/L (3.5-5.1); Sodium 141 mmol/L (136-145)
== END 2022-07-31 02:51 | disposition home or self-care (01) ==
LOC: LOS 02:51
PROVIDERS: PCP Family Medicine; Visit Provider Family Medicine
DX: I10 Essential (primary) hypertension (principal)
CPT/HCPCS: 36415; 80048

== ENCOUNTER → 2023-07-18 14:31 | Outpatient (CLI) | payer MEDICARE, SELFPAY ==
--- NOTE | 2023-07-18 14:30 | DI.CT_ITS ---
Exam(s) CT CHEST/ABD/PEL W CT THORACIC LUMBAR SPINE REC EXAM: CT CHEST/ABD/PEL W CLINICAL HISTORY: back pain, trauma. flipped 4 talamantes. lower back. TECHNIQUE: Imaging Protocol: Axial computed tomography images with coronal and sagittal reformatted images were created and reviewed Coronal and sagittal reconstructions of the thoracic and lumbar spine or performed using bone algorit hm. CONTRAST MATERIAL: Intravenous: Omnipaque 350 Contrast volume:100 ml Oral: no COMPARISON: CR ABD FLAT UPRIGHT PA CHEST from 06/17/2015 CR XR RIBS LT PA CHEST 3V from 01/19/[address] THORACIC LUMBAR SPINE REC from 07/18/2023 FINDINGS: CHEST: Tracheobronchial tree: Patent where visualized. Pulmonary parenchyma: Atelectasis medial left lower lobe. Atelectasis versus scarring bilateral lowe r lobes. No consolidation or dominant measurable mass. Minimal emphysematous changes. Pleura: No effusion or pneumothorax. Lymph nodes: Within normal limits. Aorta: Ascending aorta dilated to 4.3 cm. Descending aorta is tortuous. No evidence of aortic leak or dissection. Main pulmonary artery dilated to 4.2 cm. Heart: Mildly dilated. Minimal coronary artery calcifications visible. Bones: Unremarkable for age. Degenerative changes and endplate osteophytes. No lytic or blastic les ions there is mild compression fractures of T4 and T10 which do not appear acute. ABDOMEN and PELVIS: Liver: Normal density. No measurable mass. Gallbladder and biliary tract: No evidence of stones or wall thickening. No biliary dilatation. Pancreas: Normal density, no abnormal calcifications or inflammatory process. Spleen: Normal. Kidneys: Normal size, contour and axis. No radiodense stones or obstructive uropathy. Bilateral arnav l cysts. No follow-up recommended. No suspicious masses seen. Adrenal glands: No masses seen. Aorta: Abdominal portion non-dilated. Tortuous. Minimal atherosclerotic changes. Lymph nodes: Within normal limits. Soft tissues: Unremarkable. Bladder: Unremarkable. Bowel: No obstruction or bowel wall thickening. Peritoneal cavity: No ascites. No focal collection or mesenteric inflammatory response. Bones: Scoliosis and degenerative changes. Apparent acute fracture line through the anterior inferio r endplate of T12. Fracture extends through the osteophyte. Minimal compression of the superior end plate of L1 which may also be acute. Posterior elements appear intact. Reproductive organs: Prostate enlarged. IMPRESSION: Minimal fractures seen at the anterior inferior endplate of T12 and anterior superior endplate of L1. No acute abnormality abnormality in the chest abdomen or pelvis. Dilated ascending aorta and main pu lmonary artery are noted. RADIATION DOSE DELIVERED: Total DLP DATA REPOSITORY: All CT scans at this facility are submitted to the National Radiology Data Registry (NRDR) Dose Index Registry (DIR) with the [employer] (A[employer]). RADIATION OPTIMIZATION: All CT scans at this facility use at least one of these dose optimization te chniques: automated exposure control; mA and/or kV adjustment per patient size (includes targeted exa ms where dose is matched to clinical indication); or iterative reconstruction.
[2023-07-18 15:20] LABS: BUN 22 mg/dL (7-18); CREATININE 0.9 mg/dL (0.70-1.30); Chloride 101 mmol/L (98-107); Estimated GFR 84.74 (mL/min/1.73m2); Glucose 174 mg/dL (74-106); Potassium 3.6 mmol/L (3.5-5.1); Sodium 138 mmol/L (136-145)
== END ==
PROVIDERS: PCP Family Medicine; Visit Provider Physician Assistant
DX: V86.55XA Driver of 3- or 4- wheeled all-terrain vehicle (ATV) injured in nontraffic accident, initial encounter (principal); S32.010A Wedge compression fracture of first lumbar vertebra, initial encounter for closed fracture; X58.XXXA Exposure to other specified factors, initial encounter
CPT/HCPCS: 74177; 80048; 71260

== ENCOUNTER 2024-07-03 02:58 | Outpatient (CLI) | payer MEDICARE, SELFPAY ==
[2024-07-03 11:37] LABS: Anion Gap 4.3 mmol/L (3-11); BUN 16 mg/dL (7-18); CO2 31.7 mmol/L (21.0-32.0); CREATININE 0.8 mg/dL (0.70-1.30); Chloride 102 mmol/L (98-107); Estimated GFR 87.27 (mL/min/1.73m2); Glucose 102 mg/dL (74-106); Potassium 3.8 mmol/L (3.5-5.1); Sodium 138 mmol/L (136-145)
== END 2024-07-03 02:59 | disposition home or self-care (01) ==
LOC: LBO 02:59
PROVIDERS: PCP Family Medicine; Visit Provider Family Medicine
DX: E87.1 Hypo-osmolality and hyponatremia (principal)
CPT/HCPCS: 36415; 80048

== ENCOUNTER 2025-02-26 02:41 | Outpatient (CLI) | payer MEDICARE, SELFPAY ==
--- NOTE | 2025-02-26 08:15 | DI.RAD_ITS ---
Exam(s) XR SHOULDER LT COMPLETE 2+V EXAM: XR SHOULDER LT COMPLETE 2+V CLINICAL HISTORY: left shoulder pain,[id number]. TECHNIQUE: 2D digital imaging was performed. Five views. COMPARISON: No exams were available for comparison FINDINGS: BONES: No acute fracture is present. No bony destructive lesion is seen. Degenerative spurring at th e greater and lesser tuberosities. JOINTS: No dislocation present. Mild spurring at the AC joint. Mild spurring at the glenohumeral abelardo int. The joint space is maintained. SOFT TISSUE: Normal. IMPRESSION: [id number] degenerative changes. DATA REPOSITORY: RADIATION DOSE DELIVERED:
== END 2025-02-26 03:01 ==
LOC: DI 02:41
PROVIDERS: PCP Family Medicine; Visit Provider Family Medicine
DX: M19.012 Primary osteoarthritis, left shoulder
CPT/HCPCS: 73030

== ENCOUNTER 2025-10-02 09:44 | Emergency (ER) | payer MEDICARE, SELFPAY ==
[2025-10-02 09:49] VITALS: BP 173/91; PULSE 62; RESP 16; TEMP 36.2; O2SAT 95
--- NOTE | 2025-10-02 09:57 | ED.GENADUL_ITS ---
Discharge Plan Disposition Patient Disposition: Home Condition: Good Discharge Details Clinical Impression: Arthralgia of knee, left Primary Care Provider: Hadley Waller ED Provider: Michelle Marie Home Meds and New Rx's Prescriptions: No Action hydrochlorothiazide 12.5 mg tablet 12.5 mg PO DAILY Qty: 90 3RF Rx Instructions: take one tablet daily tamsulosin 0.4 mg capsule 0.8 mg PO DAILY Qty: 180 3RF Discharge Instructions Instructions: Osteoarthritis Additional Instructions: Please call [facility] first thing Sunday morning to schedule follow-up appointment for further evaluation/management of your knee pain. A referral to orthopedics has been made. I recommend that you do gentle movement during the day, warm baths/warm compresses/heating pad, good sleep positioning with supporting your knee. Voltaren gel used according to package instructions may also be helpful. Return to emergency care if you develop new swelling/redness/warmth to your knee, fevers associated with knee pain, numbness/tingling in your leg, inability to bear weight, or if you are very worried and need to be rechecked again immediately Stand Alone Forms: Portal Information Referrals: [facility] [Provider Group] Hadley Waller MD [Primary Care Provider, Medicine] HPI General Date/Time Provider Initiated Documentation: 10/02/25 09:46 . HPI Narrative: Damon is a 89-year-old male who presents to the emergency department today for evaluation of L knee pain. He reports pain has been ongoing for the last 10 to 14 days, gradually increasing. It is noted to be worse at night, especially when straightening the leg after having it bent. Responds well to Excedrin. He denies associated symptoms such as general malaise, fever/chills, change in energy level, change in bowel or bladder function, back pain, recent trauma, distal numbness/tingling, knee swelling. No previous history of trauma or similar joint pain. PMH significant for HTN (tx with HCTZ) , BPH (tx with tamsulosin), basal cell carcinoma/malignant melanoma, and anemia. Denies history of GI bleeds. Is followed by Dr Waller at [facility]. Related Data Home Medications ?Medication ?Instructions ?Recorded ?Confirmed hydrochlorothiazide 12.5 mg tablet 12.5 mg PO DAILY #9 0 tabs 11/25/24 10/02/25 tamsulosin 0.4 mg capsule 0.8 mg (2 x 0.4 mg) PO DAILY bph 11/25/24 10/02/25 #180 caps Previous Rx's ?Medication ?Instructions ?Recorded hydrochlorothiazide 12.5 mg tablet 12.5 mg PO DAILY #9 0 tabs 11/25/24 tamsulosin 0.4 mg capsule 0.8 mg (2 x 0.4 mg) PO DAILY bph 11/25/24 #180 caps Allergies Allergy/AdvReac Type Severity Reaction Status Date / Time penicillin G Allergy Mild Skin Rash Verified 10/02/25 09:52 General Stated Complaint: Orthopedic RONEL: 4 Exam Const General: cooperative, healthy appearing, comfortable, no acute distress and well developed Nutritional Appearance: average body habitus Orientation: alert and oriented x3 HENMT Head: normal to inspection and atraumatic Skin General skin exam: no rashes or lesions noted Trauma: no lacerations or abrasions Neuro General: patient alert, patient oriented x3, tone normal, moves all extremities and no focal motor deficits Cognition: normal cognition Speech: speech normal Motor: muscle tone normal throughout and strength 5/5 throughout Sensory Exam: no sensory deficits noted Extrem General: normal to inspection, full ROM and capillary refill normal Right lower extremity: normal to inspection Left lower extremity: normal to inspection, full ROM, normal capillary refill and knee Details: normal to inspection, normal ROM and knee ligament exam normal; no tenderness, no swelling, no abrasions, no lacerations, no ecchymosis, no crepitus, no foreign bodies, no penetrating wound, no deformity and no unusual warmth Course Vital Signs Vital signs: Vital Signs Temperature 36.2 C L 10/02/25 09:49 Pulse 62 10/02/25 09:49 Respiratory Rate 16 10/02/25 09:49 Blood Pressure 173/91 H 10/02/25 09:49 Pulse Oximetry 95 10/02/25 09:49 Temperature 36.2 C L 10/02/25 09:49 Pulse 62 10/02/25 09:49 Respiratory Rate 16 10/02/25 09:49 Blood Pressure 173/91 H 10/02/25 09:49 Pulse Oximetry 95 10/02/25 09:49 Oxygen Delivery Method Room Air 10/02/25 09:49 Oxygen Flow Rate 0 10/02/25 09:49 Medical Decision Making Damon is a 89-year-old male who presents to the emergency department today for evaluation of L knee pain. He reports pain has been ongoing for the last 10 to 14 days, gradually increasing. It is noted to be worse at night, especially when straightening the leg after having it bent. Responds well to Excedrin. He denies associated symptoms such as general malaise, fever/chills, change in energy level, change in bowel or bladder function, back pain, recent trauma, distal numbness/tingling, knee swelling. He denies sensation of c licking/catching in the knee with movement. No previous history of trauma or similar joint pain. Physical exam reassuring. No tenderness/erythema/edema to knee noted. Full painless range of motion, including both extension and flexion. No pain with movement of hip or ankle. No color change or temperature change to extremity. He is comfortable at rest, reports no discomfort when he is not moving. DDx includes but is not limited to: Osteoarthritis, anterior derangement of knee such as meniscal injury. No red flags concerning for septic joint or gout. Patient does not meet SIRS criteria. I independently interpreted the following tests: Left knee x-ray, no obvious abnormalities noted. Radiology noted degenerative changes and small amount of increased joint fluid, no bony abnormalities. While in the emergency Damon received Voltaren gel for discomfort. Overall workup today reassuring, presentation most consistent with osteoarthritis. Reviewed discharge instructions with patient and his , including symptomatic management and importance of follow-up with PCP/orthopedics for further management/evaluation. Imaging Data Radiologic Study: Radiologist's impression: Exam(s) XR KNEE LT 4V AP,LAT,JJ,PAT EXAM: XR KNEE LT 4V AP,LAT,JJ,PAT CLINICAL HISTORY: L knee pain with bending/straightening. TECHNIQUE: 2D digital imaging was performed. COMPARISON: No exams were available for comparison FINDINGS: Four views No evidence acute fracture. There is a small amount of increased joint fluid. Bone density is normal. No osseous lesions. There are moderate degenerative changes in the medial lateral compartments as well as within the patellofemoral compartment. IMPRESSION: Degenerative changes-moderate. Small amount of increased joint fluid. No fractures evident. 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 (Acute 05/25/17) 05/16/17 [facility] [place]-RIGHT SIDE;TUMOR REMOVED Malignant melanoma (Acute) surgery [facility] [place]/ on back Essential hypertension (Acute) BPH (benign prostatic hyperplasia) (Chronic) Closed bimalleolar fracture of left ankle (Acute 11/20/21) Status post ORIF DOS: 11/25/2021 Medical History Cataract excision of right cataract with iol implant Melanoma Essential hypertension (12/17/13) Surgical History H/O right inguinal hernia repair with mesh Nuclear sclerotic cataract of left eye s/p cataract surgery left eye, 06/03/18 Mohs micrographic surgery 05/16/17 [place] [facility] [place] Family History Mother , AGE 68 Cancer Father , age 87 No problems noted. Sister No problems noted. Sister No problems noted. Sister No problems noted. Brother , AGE 71 Heart disease Brother No problems noted. Brother , AGE 69 No problems noted. Son No problems noted. Daughter No problems noted. Daughter No problems noted. 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 Pets and animals: Yes Pets and animals: cat(s) and dog(s) Sexually active: No Do you think of yourself as: straight/heterosexual Current gender identity: male What is your relationship status?: How often do you talk on the phone with friends or family?: never How often do you get together with friends or relatives?: once per week Do you belong to any clubs or organized social groups?: no Panel score (0-1 are the most socially isolated patients): 1 What type of physical activity do you participate in: walking Duration: 30-45 minutes/day Frequency: daily Mai/Taoism: None Special mai needs: No Seatbelt use: always Helmet use: No Drive intox or ride w/intox driver supervisor: No Do you feel safe at home: Yes Do you feel safe in your relationship?: Yes Victim of physical abuse: No Victim of emotional abuse: No Victim of sexual abuse: No
--- NOTE | 2025-10-02 10:48 | DI.RAD_ITS ---
Exam(s) XR KNEE LT 4V AP,LAT,JJ,PAT EXAM: XR KNEE LT 4V AP,LAT,JJ,PAT CLINICAL HISTORY: L knee pain with bending/straightening. TECHNIQUE: 2D digital imaging was performed. COMPARISON: No exams were available for comparison FINDINGS: Four views No evidence acute fracture. There is a small amount of increased joint fluid. Bone density is normal. No osseous lesions. There are moderate degenerative changes in the medial lateral compartments as well as within the patellofemoral compartment. IMPRESSION: Degenerative changes-moderate. Small amount of increased joint fluid. No fractures evident. DATA REPOSITORY: RADIATION DOSE DELIVERED:
[2025-10-02] MEDS: Diclofenac 1% Gel 100 GM TUBE TP (11:17)
[2025-10-02 11:24] VITALS: BP 152/69; PULSE 66; RESP 18; O2SAT 96
== END 2025-10-02 11:24 | disposition home or self-care (01) ==
PROVIDERS: Emergency Provider Nurse Practitioner Family; PCP Family Medicine
DX: M25.562 Pain in left knee (principal)
CPT/HCPCS: 99283 ×2; 73564